=== PATIENT | female | born 1970 | race Caucasian/White ===

== ENCOUNTER 2019-09-22 13:42 | Emergency (ER) | payer MEDICARE, MEDICAID ==
[~2019-09-22] VITALS: Ht 170.2 cm; Wt 71.6 kg
[2019-09-22 13:48] VITALS: BP 121/83
[2019-09-22] MEDS ORDERED: SULF1TAB49 PO (14:57)
[2019-09-22] MEDS ORDERED: CEPH500C5 PO (14:57)
== END 2019-09-22 15:12 | disposition home or self-care (01) ==
LOC: ER 13:43
DX: S91.101A Unspecified open wound of right great toe without damage to nail, initial encounter (principal); F15.90 Other stimulant use, unspecified, uncomplicated; F17.200 Nicotine dependence, unspecified, uncomplicated; Z88.1 Allergy status to other antibiotic agents; Z88.5 Allergy status to narcotic agent; X58.XXXA Exposure to other specified factors, initial encounter; Y93.89 Activity, other specified; Y92.89 Other specified places as the place of occurrence of the external cause; Y99.8 Other external cause status
CPT/HCPCS: 73630; 99283

== ENCOUNTER 2021-03-27 21:23 | Emergency (ER) | payer MEDICARE, MEDICAID ==
[~2021-03-27] VITALS: Ht 170.2 cm; Wt 68.1 kg
[~2021-03-27 21:23] MED LIST: ALBU6.7H9 INH
[2021-03-27] MEDS ORDERED: iohexol 350MG/ML 100ml bottle IV ONE (22:58)
--- NOTE | 2021-03-27 23:22 | NUR ---
patient to ct
--- NOTE | 2021-03-27 23:27 | NUR ---
Patient is a hard stick, US used for IV.
[2021-03-27 23:29] LABS: BASOPHILS % (AUTO) 0.3 % (0-1); EOSINOPHILS # (AUTO) 0.1 X10'3 (0-0.9); EOSINOPHILS % (AUTO) 2.3 % (0-6); HEMATOCRIT 40.2 % (35.0-45.0); HEMOGLOBIN 12.8 g/dl (12.0-16.0); LYMPHOCYTES # (AUTO) 2.1 X10'3 (1.1-4.8); LYMPHOCYTES % (AUTO) 41.1 % (21-51); MEAN CORPUSCULAR HEMOGLOBIN 25.8 PG (27.0-31.0); MEAN CORPUSCULAR HGB CONC 31.8 g/dL (33.0-36.5); MEAN CORPUSCULAR VOLUME 80.9 FL (78-98); MONOCYTES # (AUTO) 0.4 X10'3 (0-0.9); MONOCYTES % (AUTO) 7.1 % (2-12); NEUTROPHILS # (AUTO) 2.6 X10'3 (1.8-7.7); NEUTROPHILS % (AUTO) 49.2 % (42-75); PLATELET COUNT 244 X10'3 (140-440); RED BLOOD COUNT 4.97 X10'6 (4.20-5.60); RED CELL DISTRIBUTION WIDTH 18.2 % (11.5-14.5); WHITE BLOOD COUNT 5.2 X10'3 (4.5-11.0)
[2021-03-27 23:34] LABS: ALANINE AMINOTRANSFERASE 28 U/L (12-78); ALBUMIN 3.4 G/DL (3.4-5.0); ALBUMIN/GLOBULIN RATIO 0.9 (1.1-1.5); ALKALINE PHOSPHATASE 164 IU/L (46-116); ANION GAP 6 (8-16); ASPARTATE AMINO TRANSFERASE 41 U/L (10-37); BILIRUBIN,TOTAL 0.2 MG/DL (0.1-1.0); BLOOD UREA NITROGEN 13 MG/DL (7-18); BUN/CREATININE RATIO 14.9 (6.6-38.0); CALCIUM 8.4 MG/DL (8.5-10.1); CHLORIDE 110 MMOL/L (99-107); CREATININE 0.87 MG/DL (0.40-0.90); GLUCOSE 92 MG/DL (70-104); POTASSIUM 5.2 MMOL/L (3.5-5.1); SODIUM 143 MMOL/L (135-145); TOTAL CARBON DIOXIDE 26.9 MMOL/L (24-32); TOTAL PROTEIN 7.4 G/DL (6.4-8.2); eGFR 69 ML/MIN
[2021-03-27 23:42] LABS: TROPONIN I < 0.04 NG/ML (0.0-0.05)
[2021-03-28] MEDS ORDERED: furosemide 10 MG/1 ML 10ml inj IV ONE
[2021-03-28] MEDS ORDERED: furosemide 40mg/4ml inj IV ONE (00:15)
--- NOTE | 2021-03-28 00:23 | NUR ---
patient received dc instructions and acknowledged understanding. vs wnl. patients friend is her ride. dc home.
[2021-03-28 00:24] VITALS: BP 143/86
--- NOTE | 2021-03-28 00:34 | NUR ---
patient forgot two bottles of medication at bedside, medications where double bagged and patient stickers are on. Called patient at [phone] and home number. Left messages on both that patient needs to come back to [facility] meds. meds at charge nurse station.
== END 2021-03-28 00:35 | disposition home or self-care (01) ==
LOC: ER 21:24
DX: U07.1 COVID-19 (principal); R55 Syncope and collapse; E87.5 Hyperkalemia; J44.9 Chronic obstructive pulmonary disease, unspecified; F15.90 Other stimulant use, unspecified, uncomplicated; Z88.5 Allergy status to narcotic agent; Z79.899 Other long term (current) drug therapy
CPT/HCPCS: 36415; 71045; 71275; 80053; 83880; 84484; 85025; 93005; 96374; 99285; J1940; Q9967

== ENCOUNTER 2023-06-01 16:38 | Emergency (ER) | payer MEDICAID, MEDICARE ==
[~2023-06-01 16:38] MED LIST changes: +ALBU6.7H14 INH; -ALBU6.7H9 INH
--- NOTE | 2023-06-01 17:00 | NUR ---
PT GOT UPSET THAT EMS WERE TALKING ABOUT THEIR FAMILIES WHILE WAITING FOR A ROOM IN THE MAIN ER TO OPEN. PT EXTRACATED HERSELF OFF THE GURNEY BY UNLOCKING THE SAFETY BELTS AND JUMPING OFF OF THE GURNEY, AND EXITED OUT OF THE AMBULANCE BAY DOORS. PT LEFT BEFORE BEING ROOMED/LBT
== END 2023-06-01 17:00 | disposition left against medical advice (07) ==
LOC: ER 16:39
DX: R50.9 Fever, unspecified (principal); Z53.21 Procedure and treatment not carried out due to patient leaving prior to being seen by health care provider

== ENCOUNTER 2023-09-08 18:43 | Emergency (ER) | payer MEDICARE ==
[~2023-09-08] VITALS: Ht 167.6 cm; Wt 59.1 kg
[2023-09-08 18:44] VITALS: BP 145/91; PULSE 101; RESP 18; TEMP 98.5; O2SAT 95
== END 2023-09-08 19:20 | disposition left against medical advice (07) ==
LOC: ER 18:44
DX: H57.12 Ocular pain, left eye (principal); Z53.21 Procedure and treatment not carried out due to patient leaving prior to being seen by health care provider
CPT/HCPCS: 99281

== ENCOUNTER 2023-11-27 23:17 | Emergency (ER) | payer MEDICARE, MEDICAID ==
[~2023-11-27] VITALS: Ht 170.2 cm; Wt 55.5 kg
[2023-11-27 23:25] VITALS: BP 120/66; PULSE 95; RESP 20; TEMP 100.3; O2SAT 94
== END 2023-11-28 01:25 | disposition left against medical advice (07) ==
LOC: ER 23:17
DX: R05.9 Cough, unspecified (principal); Z53.21 Procedure and treatment not carried out due to patient leaving prior to being seen by health care provider; Z20.822 Contact with and (suspected) exposure to COVID-19
CPT/HCPCS: 71045

== ENCOUNTER 2024-02-14 16:15 | Emergency (ER) | payer BC, MEDICAID ==
[~2024-02-14] VITALS: Ht 167.6 cm; Wt 56.8 kg
[2024-02-14 17:24] LABS: BILIRUBIN,URINE NEGATIVE (Neg); CLARITY,URINE SLIGHTLY CLOUDY (Clear); GLUCOSE, URINE NEGATIVE (Neg); KETONES,URINE NEGATIVE (Neg); LEUKOCYTE ESTERASE ,URINE SMALL (Neg); NITRITES, URINE POSITIVE (Neg); OCCULT BLOOD,URINE NEGATIVE (Neg); PROTEIN,URINE NEGATIVE (Neg); UROBILINOGEN,URINE 0.2 E.U/dL (0.2-1.0)
[2024-02-14 17:25] LABS: URINE HCG NEGATIVE (NEG)
[2024-02-14 17:27] LABS: COLOR,URINE DARK YELLOW (Yellow); UA COLLECTION TYPE VOIDED
[2024-02-14 17:29] LABS: BASOPHILS # (AUTO) 0.1 X10'3 (0-0.2); BASOPHILS % (AUTO) 0.8 % (0-1); EOSINOPHILS # (AUTO) 0.2 X10'3 (0-0.9); HEMATOCRIT 37.6 % (35.0-45.0); HEMOGLOBIN 12.2 g/dl (12.0-16.0); LYMPHOCYTES # (AUTO) 2.5 X10'3 (1.1-4.8); LYMPHOCYTES % (AUTO) 32.2 % (21-51); MEAN CORPUSCULAR HEMOGLOBIN 27.6 PG (27.0-31.0); MEAN CORPUSCULAR HGB CONC 32.4 g/dL (33.0-36.5); MEAN CORPUSCULAR VOLUME 85.1 FL (78-98); MEAN PLATELET VOLUME 7.9 FL (7.4-10.4); MONOCYTES # (AUTO) 0.5 X10'3 (0-0.9); MONOCYTES % (AUTO) 6.8 % (2-12); NEUTROPHILS # (AUTO) 4.5 X10'3 (1.8-7.7); NEUTROPHILS % (AUTO) 58.2 % (42-75); PLATELET COUNT 284 X10'3 (140-440); RED BLOOD COUNT 4.42 X10'6 (4.20-5.60); RED CELL DISTRIBUTION WIDTH 15.5 % (11.5-14.5); WHITE BLOOD COUNT 7.7 X10'3 (4.5-11.0)
[2024-02-14 17:31] LABS: BACTERIA,URINE 2+ /HPF (Neg); CAL OXALATE CRYSTALS 2+ /HPF (NEGATIVE); RBC,URINE 0-2 /HPF (0-2); SQUAMOUS EPITHELIAL CELL,UR MODERATE /LPF (FEW); WBC,URINE 30-50 /HPF (0-4)
[2024-02-14 17:33] LABS: URINE AMPHETAMINE SCREEN POSITIVE (Neg); URINE BARBITUATE SCREEN NEGATIVE (Neg); URINE BENZODIAZEPINES SCREEN NEGATIVE (Neg); URINE CANNABINOID SCREEN NEGATIVE (Neg); URINE COCAINE SCREEN NEGATIVE (Neg); URINE METHADONE SCREEN NEGATIVE (Neg); URINE OPIATE SCREEN NEGATIVE (Neg); URINE PHENCYCLIDINE SCREEN NEGATIVE (Neg)
[2024-02-14 17:40] LABS: ALANINE AMINOTRANSFERASE 31 U/L (12-78); ALBUMIN 3.2 G/DL (3.4-5.0); ALBUMIN/GLOBULIN RATIO 0.9 (1.1-1.5); ALKALINE PHOSPHATASE 138 IU/L (46-116); ANION GAP 8 (8-16); ASPARTATE AMINO TRANSFERASE 23 U/L (10-37); BILIRUBIN,TOTAL 0.3 MG/DL (0.1-1.0); BLOOD UREA NITROGEN 12 MG/DL (7-18); BUN/CREATININE RATIO 15.8 (10.0-20.0); CALCIUM 8.3 MG/DL (8.5-10.1); CHLORIDE 108 MMOL/L (99-107); CREATININE 0.76 MG/DL (0.40-0.90); ETHANOL < 10 MG/DL (<10); GLUCOSE 64 MG/DL (70-104); POTASSIUM 3.8 MMOL/L (3.5-5.1); SODIUM 142 MMOL/L (135-145); TOTAL CARBON DIOXIDE 26.4 MMOL/L (24-32); TOTAL PROTEIN 6.7 G/DL (6.4-8.2); eCRCL 76 ML/MIN; eGFR 79 ML/MIN
[2024-02-14] MEDS ORDERED: NO HOME MEDS (18:40)
[2024-02-15 07:49] VITALS: BP 119/88; PULSE 77; TEMP 96.8; O2SAT 99
[2024-02-15 09:30] VITALS: RESP 16
== END 2024-02-15 12:33 ==
LOC: ER 16:15
DX: R45.851 Suicidal ideations (principal); R06.02 Shortness of breath; J44.9 Chronic obstructive pulmonary disease, unspecified; F15.10 Other stimulant abuse, uncomplicated; Z88.5 Allergy status to narcotic agent; Z79.899 Other long term (current) drug therapy
CPT/HCPCS: 36415; 80053; 80305; 80320; 81001; 81025; 85025; 87088; 87811; 99285

== ENCOUNTER 2024-02-25 06:06 | Emergency (ER) | payer BC, MEDICAID ==
[~2024-02-25 06:06] MED LIST changes: -ALBU6.7H14 INH; +NO HOME MEDS
[2024-02-25 06:25] VITALS: BP 19/90; PULSE 83; RESP 18; TEMP 96.7; O2SAT 99
[2024-02-25 07:25] LABS: BASOPHILS # (AUTO) 0.1 X10'3 (0-0.2); BASOPHILS % (AUTO) 0.8 % (0-1); EOSINOPHILS # (AUTO) 0.2 X10'3 (0-0.9); EOSINOPHILS % (AUTO) 2.2 % (0-6); HEMATOCRIT 39.5 % (35.0-45.0); HEMOGLOBIN 12.6 g/dl (12.0-16.0); LYMPHOCYTES # (AUTO) 2.5 X10'3 (1.1-4.8); LYMPHOCYTES % (AUTO) 25.7 % (21-51); MEAN CORPUSCULAR HEMOGLOBIN 27.6 PG (27.0-31.0); MEAN CORPUSCULAR HGB CONC 31.9 g/dL (33.0-36.5); MEAN CORPUSCULAR VOLUME 86.6 FL (78-98); MEAN PLATELET VOLUME 8.5 FL (7.4-10.4); MONOCYTES # (AUTO) 0.6 X10'3 (0-0.9); MONOCYTES % (AUTO) 6.1 % (2-12); NEUTROPHILS # (AUTO) 6.3 X10'3 (1.8-7.7); NEUTROPHILS % (AUTO) 65.2 % (42-75); PLATELET COUNT 280 X10'3 (140-440); RED BLOOD COUNT 4.56 X10'6 (4.20-5.60); RED CELL DISTRIBUTION WIDTH 16.4 % (11.5-14.5); WHITE BLOOD COUNT 9.7 X10'3 (4.5-11.0)
[2024-02-25 07:32] LABS: ALANINE AMINOTRANSFERASE 30 U/L (12-78); ALBUMIN 3.6 G/DL (3.4-5.0); ALBUMIN/GLOBULIN RATIO 0.9 (1.1-1.5); ALKALINE PHOSPHATASE 121 IU/L (46-116); ANION GAP 9 (8-16); BILIRUBIN,TOTAL 0.3 MG/DL (0.1-1.0); BLOOD UREA NITROGEN 23 MG/DL (7-18); BUN/CREATININE RATIO 34.3 (10.0-20.0); CALCIUM 8.4 MG/DL (8.5-10.1); CHLORIDE 107 MMOL/L (99-107); CREATININE 0.67 MG/DL (0.40-0.90); GLUCOSE 97 MG/DL (70-104); SODIUM 140 MMOL/L (135-145); TOTAL CARBON DIOXIDE 23.6 MMOL/L (24-32); TOTAL PROTEIN 7.5 G/DL (6.4-8.2); eGFR > 90 ML/MIN
[2024-02-25 07:39] LABS: ASPARTATE AMINO TRANSFERASE 29 U/L (10-37); POTASSIUM 5.3 MMOL/L (3.5-5.1)
== END 2024-02-25 07:35 | disposition left against medical advice (07) ==
LOC: ER 06:07
DX: E87.5 Hyperkalemia (principal); Z88.8 Allergy status to other drugs, medicaments and biological substances; Z53.21 Procedure and treatment not carried out due to patient leaving prior to being seen by health care provider
CPT/HCPCS: 36415; 80053; 85025; 93005

== ENCOUNTER 2024-02-25 08:44 | Emergency (ER) | payer BC, MEDICAID ==
[~2024-02-25] VITALS: Ht 170.2 cm; Wt 57.9 kg
[2024-02-25 08:57] VITALS: TEMP 97.8
[2024-02-25] MEDS ORDERED: sodium polystyrene sulfonate 15gm/60ml oral suspension PO ONE (09:35)
[2024-02-25] MEDS: sodium polystyrene sulfonate 15gm/60ml oral suspension PO ONE (11:53)
[2024-02-25 14:26] LABS: BASOPHILS % (AUTO) 0.5 % (0-1); EOSINOPHILS # (AUTO) 0.2 X10'3 (0-0.9); EOSINOPHILS % (AUTO) 2.1 % (0-6); HEMATOCRIT 41.6 % (35.0-45.0); HEMOGLOBIN 13.5 g/dl (12.0-16.0); LYMPHOCYTES # (AUTO) 2.4 X10'3 (1.1-4.8); LYMPHOCYTES % (AUTO) 25.1 % (21-51); MEAN CORPUSCULAR HEMOGLOBIN 27.7 PG (27.0-31.0); MEAN CORPUSCULAR HGB CONC 32.4 g/dL (33.0-36.5); MEAN CORPUSCULAR VOLUME 85.8 FL (78-98); MEAN PLATELET VOLUME 7.7 FL (7.4-10.4); MONOCYTES # (AUTO) 0.6 X10'3 (0-0.9); NEUTROPHILS # (AUTO) 6.2 X10'3 (1.8-7.7); NEUTROPHILS % (AUTO) 66.3 % (42-75); PLATELET COUNT 281 X10'3 (140-440); RED BLOOD COUNT 4.85 X10'6 (4.20-5.60); RED CELL DISTRIBUTION WIDTH 16.4 % (11.5-14.5); WHITE BLOOD COUNT 9.4 X10'3 (4.5-11.0)
[2024-02-25 14:38] VITALS: BP 118/85; PULSE 74; RESP 16; O2SAT 99
[2024-02-25 14:39] LABS: ALANINE AMINOTRANSFERASE 35 U/L (12-78); ALBUMIN 3.9 G/DL (3.4-5.0); ALKALINE PHOSPHATASE 138 IU/L (46-116); ANION GAP 10 (8-16); ASPARTATE AMINO TRANSFERASE 26 U/L (10-37); BILIRUBIN,TOTAL 0.3 MG/DL (0.1-1.0); BLOOD UREA NITROGEN 19 MG/DL (7-18); BUN/CREATININE RATIO 28.4 (10.0-20.0); CALCIUM 8.8 MG/DL (8.5-10.1); CHLORIDE 105 MMOL/L (99-107); CREATININE 0.67 MG/DL (0.40-0.90); GLUCOSE 98 MG/DL (70-104); POTASSIUM 4.9 MMOL/L (3.5-5.1); SODIUM 139 MMOL/L (135-145); TOTAL CARBON DIOXIDE 23.8 MMOL/L (24-32); eCRCL 88 ML/MIN; eGFR > 90 ML/MIN
== END 2024-02-25 15:00 | disposition home or self-care (01) ==
LOC: ER 08:44
DX: E87.5 Hyperkalemia (principal); J44.9 Chronic obstructive pulmonary disease, unspecified; F15.90 Other stimulant use, unspecified, uncomplicated; Z88.8 Allergy status to other drugs, medicaments and biological substances
CPT/HCPCS: 36415; 80053; 85025; 93005; 99284

== ENCOUNTER 2024-02-27 09:55 | Emergency (ER) | payer BC, MEDICAID ==
[~2024-02-27] VITALS: Ht 170.2 cm; Wt 58.0 kg
[2024-02-27 10:53] VITALS: BP 110/70; PULSE 80; RESP 20; TEMP 97.9; O2SAT 98
== END 2024-02-27 10:56 | disposition home or self-care (01) ==
LOC: ER 09:56
DX: Z02.89 Encounter for other administrative examinations (principal); J45.909 Unspecified asthma, uncomplicated; F15.90 Other stimulant use, unspecified, uncomplicated; Z88.8 Allergy status to other drugs, medicaments and biological substances
CPT/HCPCS: 99281

== ENCOUNTER 2024-03-30 18:30 | Emergency (ER) | payer BC, MEDICAID ==
[~2024-03-30] VITALS: Ht 167.6 cm; Wt 58.9 kg
[2024-03-30 19:28] LABS: BASOPHILS % (AUTO) 0.6 % (0-1); EOSINOPHILS # (AUTO) 0.2 X10'3 (0-0.9); EOSINOPHILS % (AUTO) 3.2 % (0-6); HEMATOCRIT 37.6 % (35.0-45.0); HEMOGLOBIN 12.2 g/dl (12.0-16.0); LYMPHOCYTES # (AUTO) 2.2 X10'3 (1.1-4.8); LYMPHOCYTES % (AUTO) 35.3 % (21-51); MEAN CORPUSCULAR HEMOGLOBIN 27.5 PG (27.0-31.0); MEAN CORPUSCULAR HGB CONC 32.4 g/dL (33.0-36.5); MEAN CORPUSCULAR VOLUME 84.9 FL (78-98); MEAN PLATELET VOLUME 7.2 FL (7.4-10.4); MONOCYTES # (AUTO) 0.6 X10'3 (0-0.9); MONOCYTES % (AUTO) 10.1 % (2-12); NEUTROPHILS # (AUTO) 3.2 X10'3 (1.8-7.7); NEUTROPHILS % (AUTO) 50.8 % (42-75); PLATELET COUNT 274 X10'3 (140-440); RED BLOOD COUNT 4.43 X10'6 (4.20-5.60); RED CELL DISTRIBUTION WIDTH 16.1 % (11.5-14.5); WHITE BLOOD COUNT 6.2 X10'3 (4.5-11.0)
[2024-03-30 19:45] LABS: BILIRUBIN,URINE NEGATIVE (Neg); CLARITY,URINE CLEAR (Clear); COLOR,URINE YELLOW (Yellow); GLUCOSE, URINE NEGATIVE (Neg); KETONES,URINE NEGATIVE (Neg); LEUKOCYTE ESTERASE ,URINE NEGATIVE (Neg); NITRITES, URINE NEGATIVE (Neg); OCCULT BLOOD,URINE NEGATIVE (Neg); PROTEIN,URINE NEGATIVE (Neg); UROBILINOGEN,URINE 0.2 E.U/dL (0.2-1.0)
[2024-03-30 19:46] LABS: UA COLLECTION TYPE CLN CATCH MIDSTREAM
[2024-03-30 19:54] LABS: ETHANOL < 10 MG/DL (<10); THYROID STIMULATING HORMONE 3.94 ulU/ml (0.34-4.50)
[2024-03-30 20:00] LABS: URINE AMPHETAMINE SCREEN POSITIVE (Neg); URINE BARBITUATE SCREEN NEGATIVE (Neg); URINE BENZODIAZEPINES SCREEN NEGATIVE (Neg); URINE CANNABINOID SCREEN NEGATIVE (Neg); URINE COCAINE SCREEN NEGATIVE (Neg); URINE METHADONE SCREEN NEGATIVE (Neg); URINE OPIATE SCREEN NEGATIVE (Neg); URINE PHENCYCLIDINE SCREEN NEGATIVE (Neg)
[2024-03-30 20:08] LABS: ALBUMIN 3.4 G/DL (3.4-5.0); ANION GAP 5 (8-16); BLOOD UREA NITROGEN 11 MG/DL (7-18); BUN/CREATININE RATIO 12.2 (10.0-20.0); CALCIUM 8.7 MG/DL (8.5-10.1); CHLORIDE 104 MMOL/L (99-107); GLUCOSE 87 MG/DL (70-104); POTASSIUM 4.8 MMOL/L (3.5-5.1); SODIUM 138 MMOL/L (135-145); TOTAL CARBON DIOXIDE 28.9 MMOL/L (24-32); eCRCL 66 ML/MIN; eGFR 65 ML/MIN
[2024-03-30] MEDS: clonazePAM 1mg tablet PO ONE (20:41)
[2024-03-30] MEDS ORDERED: QUET-1 PO (20:49)
[2024-03-30] MEDS ORDERED: ARIP5TAB12 PO (20:49)
[2024-03-30] MEDS ORDERED: FLUO-12 PO (20:49)
[2024-03-30] MEDS ORDERED: LIT300C PO (20:49)
[2024-03-30] MEDS ORDERED: CHLO10TA18 PO (20:49)
[2024-03-30] MEDS: diphenhydrAMINE 50 mg/ml inj IM ONE (21:37)
[2024-03-30] MEDS: LORazepam 2 mg/ml vial IM ONE (21:38)
[2024-03-30] MEDS: haloperidol lactate 5mg/ml inj IM ONE (21:38)
[2024-03-30] MEDS ORDERED: LITH150C8 PO (21:47)
[2024-03-31] MEDS: aripiprazole 5mg tablet PO SCH (08:31)
[2024-03-31] MEDS: FLUoxetine 20mg capsule PO SCH (08:31)
[2024-03-31] MEDS: quetiapine 100mg tablet PO SCH (21:00)
[2024-03-31] MEDS: lithium carbonate 150mg capsule PO SCH (21:00)
[2024-04-02] MEDS ORDERED: CHLORPROMAZINE PO PRN (10:04)
[2024-04-02] MEDS: calcium carbonate 500mg chew tablet PO STA (15:31)
[2024-04-04] MEDS: clonazePAM 1mg tablet PO ONE (20:30)
[2024-04-05 06:50] VITALS: BP 118/83; PULSE 71; RESP 15; TEMP 98; O2SAT 99
== END 2024-04-05 15:13 | disposition home or self-care (01) ==
LOC: ER 18:30
DX: U07.1 COVID-19 (principal); R45.851 Suicidal ideations; J44.9 Chronic obstructive pulmonary disease, unspecified; F15.90 Other stimulant use, unspecified, uncomplicated; Z88.5 Allergy status to narcotic agent
CPT/HCPCS: 36415; 80048; 80178; 80305; 80320; 81003; 84443; 85025; 87811; 96372; 99285; J1200; J1630; J2060